=== PATIENT | female | born 1990 | race Caucasian/White ===

== ENCOUNTER 2017-04-27 11:01 | Emergency (ER) | payer BC ==
[~2017-04-27] VITALS: Ht 167.6 cm; Wt 106.0 kg
[2017-04-27] MEDS ORDERED: SODIUM CHLORIDE 0.9% 1,000 ML IV ONE (11:39)
[2017-04-27] MEDS ORDERED: METOCLOPRAMIDE 5 MG/ML, 2ML ONE (11:44)
[2017-04-27] MEDS ORDERED: SODIUM CHLORIDE FLUSH 10ML SYR IVF ONE (12:00)
[2017-04-27] MEDS ORDERED: SODIUM CHLORIDE 0.9% 1,000ML IVBOLUS ONE (12:00)
[2017-04-27] MEDS ORDERED: METOCLOPRAMIDE 5 MG/ML, 2ML IVPush ONE (12:00)
[2017-04-27 12:42] LABS: HEMATOCRIT 45.4 % (34.6-47.8); HEMOGLOBIN 15.4 g/dL (11.7-16.4); WHITE BLOOD COUNT 11.1 x10^3/uL (3.4-10)
[2017-04-27 12:56] LABS: BLOOD UREA NITROGEN 8 mg/dL (7-18)
[2017-04-27 13:01] LABS: ASPARTATE AMINO TRANSFERASE 14 U/L (15-37)
[2017-04-27 13:42] VITALS: BP 113/57
== END 2017-04-27 14:46 | disposition home or self-care (01) ==
LOC: ED 14:46
DX: O26.891 Other specified pregnancy related conditions, first trimester (principal); Z3A.10 10 weeks gestation of pregnancy; G43.A0 Cyclical vomiting, in migraine, not intractable
CPT/HCPCS: 36415; 80053; 81003; 85025; 96361; 96374; 99285; J2765; J7030